=== PATIENT | female | born 1965 | race Caucasian/White ===

== ENCOUNTER 2020-06-17 08:59 | Emergency (ER) | payer OTHER ==
[~2020-06-17] VITALS: Ht 160 cm; Wt 77.0 kg
[~2020-06-17 08:59] MED LIST: ASPI-482 PO; ATOR20TA PO; CARV25TA PO; LORA10TA3 PO; MULT-445 PO; OMEP20CA5 PO; TEMA30CA PO; TOPI25TA7 PO
[2020-06-17 09:03] VITALS: BP 116/77
--- NOTE | 2020-06-17 09:14 | PHYS DOC ---
Past History Past Medical History: CAD, High Cholesterol, [place], Other Past Surgical History: Cholecystectomy, Tonsillectomy, Tubal ligation, Other Alcohol Use: Occasionally Drug Use: None General Adult EDM: Chief Complaint: HIP PAIN HPI: HPI: Patient is a 54-year-old female coming in for worsening right hip pain. Patient states about an hour and half prior to arrival she was walking down a few wooden steps outdoors when she slipped on some wang. Patient states that she "did the splits" and her right leg went behind her. Did not fall on her right hip because she caught herself with the railing. Patient drove herself to work but is complaining of worsening pain. Denies any other injuries or swelling. Sta janine his painful even to rotate her hip. Has not taking thing for pain. Patient states she otherwise been well and denies any use of blood thinners. Review of Systems: Review of Systems: All other systems within normal limits except for as noted in the HPI Current Medications: Current Meds: Current Medications Medications (Trade) Dose Ordered Sig/All Start Time Stop Time Status Last Admin Dose Admin Ketorolac Tromethamine (Toradol Im) 60 mg 1X ONCE 06/17/20 09:15 06/17/20 09:16 UNV Allergies: Allergies: Allergies Coded Allergies Type Severity Reaction Last Updated Verified cephalexin Allergy Intermediate Rash 12/29/13 Yes latex Allergy Intermediate Rash 12/29/13 Yes meperidine Allergy Intermediate Rash 12/29/13 Yes Physical Exam: PE: Constitutional: Well developed, well nourished, no acute distress, non-toxic appearance. [] HENT: Normocephalic, atraumatic, bilateral external ears normal, nose normal. [] Eyes: PERRLA, conjunctiva normal, no discharge. [] Neck: No rigidity, supple, no stridor. [] Cardiovascular: Regular rate and rhythm, brisk cap refill [] Lungs & Thorax: Non labored symmetric respirations, no tachypnea or respiratory distress [] Abdomen: Soft, nondistended. Skin: Warm, dry, no erythema, no rash. [] Back: Unremarkable, no tenderness over spine or iliac crest. Extremities: No deformities, range of motion grossly intact, no lower extremity edema. Tenderness over anterior right hip, no tenderness in distal right lower extremity. [] Neurologic: Alert and oriented X 3, no focal deficits noted. [] Psychologic: Affect normal, judgement normal, mood normal. [] EKG: EKG: [] Radiology/Procedures: Radiology/Procedures: PROCEDURE: XR BILATERAL HIP (WITH OR WITHOUT PELVIS) 2 VIEWS_RIGHT STUDY DATE: 06/17/2020 CLINICAL INDICATION / HISTORY: Reason: pain, injury / Spl. Instructions: / History: . TECHNIQUE: Three views of the right hip were obtained. COMPARISON: None available FINDINGS: The osseous structures are normally mineralized. There is normal bony alignment present with the femoral heads well-seated within the acetabuli. There is no evidence of acute fracture or dislocation identified. The overlying soft tissues are grossly unremarkable. IMPRESSION: Unremarkable examination of the right hip. [] Heart Score: Risk Factors: Risk Factors: DM, Current or recent (<one month) smoker, HTN, HLP, family his tory of CAD, obesity. Risk Scores: Score 0 - 3: 2.5% MACE over next 6 weeks - Discharge Home Score 4 - 6: 20.3% MACE over next 6 weeks - Admit for Clinical Observation Score 7 - 10: 72.7% MACE over next 6 weeks - Early Invasive Strategies Course & Med Decision Making: Course & Med Decision Making Discussed that injury is likely due to overextension of hip. Discussed follow- up with orthopedics for continuing pain after 1 week. No x-ray evidence of avulsion injury. Dragon Disclaimer: Dragon Disclaimer: This electronic medical record was generated, in whole or in part, using a voice recognition dictation system. Departure Departure: Impression: Primary Impression: Injury of hip, right Disposition: 01 DC HOME SELF CARE/HOMELESS Condition: STABLE Referrals: ILEANA COOPER MD (PCP) [facility] Patient Instructions: RICE - Routine Care for Injuries Scripts Ibuprofen (IBUPROFEN) 800 Mg Tablet 1 TAB PO TID PRN for PAIN, #30 TAB Prov: RAQUEL MELTON MD 06/17/20 Hydrocodone Bit/Acetaminophen (HYDROCODONE-APAP 5-325 ) 1 Each Tablet 1 TAB PO PRN Q6HRS PRN for PAIN for 3 Days, #10 TAB 0 Refills Prov: RAQUEL MELTON MD 06/17/20 RAQUEL MELTON MD Jun 17, 2020 09:14
[2020-06-17] MEDS ORDERED: KETOROLAC 60 MG/2 ML VIAL. IM ONE (09:15)
--- NOTE | 2020-06-17 09:29 | RAD ---
PROCEDURE: XR BILATERAL HIP (WITH OR WITHOUT PELVIS) 2 VIEWS_RIGHT STUDY DATE: 06/17/2020 CLINICAL INDICATION / HISTORY: Reason: pain, injury / Spl. Instructions: / History: . TECHNIQUE: Three views of the right hip were obtained. COMPARISON: None available FINDINGS: The osseous structures are normally mineralized. There is normal bony alignment present wit h the femoral heads well-seated within the acetabuli. There is no evidence of acute fracture or dislo cation identified. The overlying soft tissues are grossly unremarkable. IMPRESSION: Unremarkable examination of the right hip. Electronically signed by: Raúl Tan MD (06/17/2020 9:26 AM) [id number]
[2020-06-17] MEDS ORDERED: IBUP800T19 PO (09:58)
[2020-06-17] MEDS ORDERED: HYDR-2155 PO (09:58)
== END 2020-06-17 10:07 | disposition home or self-care (01) ==
LOC: ER 08:59
DX: S79.912A Unspecified injury of left hip, initial encounter (principal); E78.00 Pure hypercholesterolemia, unspecified; I25.10 Atherosclerotic heart disease of native coronary artery without angina pectoris; I25.2 Old myocardial infarction; Z90.49 Acquired absence of other specified parts of digestive tract; Z98.51 Tubal ligation status; Z88.1 Allergy status to other antibiotic agents; Z91.040 Latex allergy status; W01.0XXA Fall on same level from slipping, tripping and stumbling without subsequent striking against object, initial encounter; Y93.01 Activity, walking, marching and hiking; Y92.89 Other specified places as the place of occurrence of the external cause; Y99.8 Other external cause status
CPT/HCPCS: 73502; 96372; 99284; J1885